=== PATIENT | female | born 1980 | race Caucasian/White ===

== ENCOUNTER 2018-07-26 02:38 | Emergency (ER) | payer OTHER ==
[~2018-07-26] VITALS: Ht 162.6 cm; Wt 72.6 kg
[2018-07-26] MEDS ORDERED: PAXIL10 MG PO (02:49)
[2018-07-26] MEDS ORDERED: CLONAZEPAM 0.50.5 M1 PO (02:50)
[2018-07-26] MEDS ORDERED: PAXIL 20 MG TAB20 M1 PO (03:42)
[2018-07-26] MEDS ORDERED: NORCO 5-325 TA1 EACH PO (03:42)
[2018-07-26] MEDS ORDERED: KLONOPIN1 MG PO (03:42)
[2018-07-26 04:05] VITALS: BP 141/95
== END 2018-07-26 04:05 | disposition home or self-care (01) ==
LOC: ER 02:38
DX: S59.292A Other physeal fracture of lower end of radius, left arm, initial encounter for closed fracture (principal); F32.9 Major depressive disorder, single episode, unspecified; F41.9 Anxiety disorder, unspecified; W01.0XXA Fall on same level from slipping, tripping and stumbling without subsequent striking against object, initial encounter; Y92.89 Other specified places as the place of occurrence of the external cause; Y93.89 Activity, other specified; Y99.8 Other external cause status